=== PATIENT | female | born 2000 | race Two or more races ===

== ENCOUNTER 2024-02-28 17:30 | Observation (INO) | payer OTHER ==
[~2024-02-28] VITALS: Ht 167.6 cm; Wt 113.4 kg
[2024-02-28] MEDS ORDERED: PREN-543 PO (18:16)
[2024-02-28 18:35] VITALS: BP 121/71; PULSE 87; RESP 18; TEMP 98.7
== END 2024-02-28 21:30 | disposition home or self-care (01) ==
LOC: MLD 17:30
PROVIDERS: ADMIT Obstetrics & Gynecology; ATTEND Obstetrics & Gynecology
DX: O26.893 Other specified pregnancy related conditions, third trimester (principal); R10.9 Unspecified abdominal pain; Z3A.30 30 weeks gestation of pregnancy
CPT/HCPCS: 36415; 86850; 86886; 86900; 86901; 96372; G0378; J2790; 81000